=== PATIENT | male | born 1960 | race Caucasian/White ===

== ENCOUNTER → 2016-05-29 | Outpatient (CLI) | payer BC | LOC: MW.CHRC 15:45 | PROVIDERS: ATTEND Family Medicine | DX: Z00.00 Encounter for general adult medical examination without abnormal findings (principal); Z53.9 Procedure and treatment not carried out, unspecified reason ==

== ENCOUNTER 2016-06-19 10:48 | Day surgery (SDC) | payer BC ==
[~2016-06-19 10:48] MED LIST: Bupivacaine 0.25%/EPINEPHrine 1:200,000 10 ML SDV ONE; Lactated Ringers 1,000 ML IV SCH; Lidocaine 1% with EPINEPHrine 1:100,000 20 ML MDV ONE; Octyl 2-Cyanoacrylate 1 Tube ONE; ceFAZolin 2 GM in Premix Bag 1 BAG IV ONE
[2016-06-19] MEDS ORDERED: Lidocaine 2% 5 ML SDV ONE (10:54)
[2016-06-19] MEDS ORDERED: Midazolam 1 MG/ML 2 ML SDV ONE (10:54)
[2016-06-19] MEDS ORDERED: fentaNYL 100 MCG/2 ML SDV ONE (10:54)
[2016-06-19] MEDS ORDERED: Propofol 200 MG/20 ML SDV ONE ×2 (10:54→12:37)
[2016-06-19] MEDS ORDERED: fentaNYL 250 MCG/5 ML SDV ONE (10:54)
[2016-06-19] MEDS ORDERED: Neostigmine Methylsulfate 1 MG/ML 5 ML Syringe ONE (10:55)
[2016-06-19] MEDS ORDERED: Ketorolac 30 MG/ML SDV ONE (10:55)
[2016-06-19] MEDS ORDERED: Rocuronium 10 MG/ML 10 ML Syringe ONE (10:55)
[2016-06-19] MEDS ORDERED: Ondansetron 4 MG/2 ML SDV ONE (10:55)
--- NOTE | 2016-06-19 11:22 | PCM.PREANE ---
Preanesthetic Assessment - Anesthesia/Transfusion/Family Hx Anesthesia History: Prior Anesthesia Without Reaction Family History of Anesthesia Reaction: No Transfusion History: No Prior Transfusion(s) - Review of Systems General: No Symptoms Pulmonary: No Symptoms Cardiovascular: No Symptoms Gastrointestinal: No symptoms Neurological: No Symptoms Other: Reports: None - Physical Assessment NPO Status Date: 06/18/16 O2 Sat by Pulse Oximetry: 96 Respiratory Rate: 16 Vital Signs: Last Vital Signs Temp 36.3 C 06/19/16 11:02 Pulse 53 L 06/19/16 11:02 Resp 16 06/19/16 11:02 BP 106/69 06/19/16 11:02 Pulse Ox 96 06/19/16 11:02 Height: 1.73 m Weight: 88.904 kg ASA Class: 1 Mental Status: Alert & Oriented x3 Dentition: Reports: Normal Dentition ROM/Head Extension: Full Lungs: Clear to auscultation Cardiovascular: Regular Rate - Allergies Allergies/Adverse Reactions: Allergies Allergy/AdvReac Type Severity Reaction Status Date / Time No Known Allergies Allergy Verified 06/16/16 16:49 - Anesthesia Plan Pre-Op Medication Ordered: None - Acknowledgements Anesthesia Type Planned: General Anesthesia Pt an Appropriate Candidate for the Planned Anesthesia: Yes Alternatives and Risks of Anesthesia Discussed w Pt/Guardian: Yes Pt/Guardian Understands and Agrees with Anesthesia Plan: Yes PreAnesthesia Questionnaire - Past Health History Medical/Surgical History: Denies Medical/Surgical History Other HEENT History: wears reading glasses, has upper permanent dental bridge Cardiovascular History: Reports: None Respiratory History: Reports: None Gastrointestinal History: Reports: None Genitourinary History: Reports: None Musculoskeletal History: Reports: Fracture Other Musculoskeletal History: L 3 fx, healed by immobilization Neurological History: Reports: None Psychiatric History: Reports: None Endocrine/Metabolic History: Reports: None Hematologic History: Reports: None Immunologic History: Reports: None Oncologic (Cancer) History: Reports: None Dermatologic History: Reports: None - Past Surgical History Head Surgeries/Procedures: Reports: None HEENT Surgical History: Reports: None Cardiovascular Surgical History: Reports: None Respiratory Surgical History: Reports: None GI Surgical History: Reports: Hernia, inguinal Male Surgical History: Reports: None Endocrine Surgical History: Reports: None Neurological Surgical History: Reports: None Musculoskeletal Surgical History: Reports: None Oncologic Surgical History: Reports: None - SUBSTANCE USE Smoking Status *Q: Never Smoker Tobacco Use Within Last Twelve Months: No Second Hand Smoke Exposure: No Recreational Drug Use History: No - HOME MEDS Home Medications: Home Meds Multivitamin [Multivitamins] 1 tab PO DAILY 07/30/15 [History] Vitamin E 400 unit PO DAILY 06/16/16 [History] - CURRENT (IN HOUSE) MEDS Current Meds: Current Medications Lactated Ringer's (Ringers, Lactated) 1,000 mls @ 125 mls/hr IV ASDIRECTED [facility] Last Admin: 06/19/16 11:04 Dose: 125 mls/hr Discontinued Medications Bupivacaine HCl/Epinephrine Bitart (Marcaine 0.25%/Epinephrine 1:200,000) Confirm Administered Dose 20 ml .ROUTE .STK-MED ONE Stop: 06/19/16 09:47 Fentanyl (Sublimaze) Confirm Administered Dose 100 mcg .ROUTE .STK-MED ONE Stop: 06/19/16 10:55 Fentanyl (Sublimaze) Confirm Administered Dose 250 mcg .ROUTE .STK-MED ONE Stop: 06/19/16 10:55 Glycopyrrolate () Confirm Administered Dose 1 mg .ROUTE .STK-MED ONE Stop: 06/19/16 10:56 Cefazolin Sodium/Dextrose 2 gm (/ Premix) 50 mls @ 100 mls/hr IV ONETIME ONE Stop: 06/19/16 05:29 Ketorolac Tromethamine (Toradol) Confirm Administered Dose 30 mg .ROUTE .STK- MED ONE Stop: 06/19/16 10:56 Lidocaine (Xylocaine-Mpf 2%) Confirm Administered Dose 10 ml .ROUTE .STK-MED ONE Stop: 06/19/16 10:55 Lidocaine/Epinephrine (Xylocaine 1% With Epinephrine 1:100,000) Confirm Administered Dose 20 ml .ROUTE .STK-MED ONE Stop: 06/19/16 09:48 Midazolam HCl (Versed 1 Mg/Ml) Confirm Administered Dose 2 mg .ROUTE .STK-MED ONE Stop: 06/19/16 10:55 Neostigmine Methylsulfate (Neostigmine) Confirm Administered Dose 5 mg .ROUTE .STK-MED ONE Stop: 06/19/16 10:56 Octyl Cyanoacrylate (Dermabond Advance) Confirm Administered Dose 1 applic .ROUTE .STK-MED ONE Stop: 06/19/16 09:48 Ondansetron HCl (Zofran) Confirm Administered Dose 4 mg .ROUTE .STK-MED ONE Stop: 06/19/16 10:56 Propofol (Diprivan 20 Ml) Confirm Administered Dose 400 mg .ROUTE .STK-MED ONE Stop: 06/19/16 10:55 Rocuronium Browns (Zemuron) Confirm Administered Dose 100 mg .ROUTE .STK-MED ONE Stop: 06/19/16 10:56 Preanesthetic Assessment - ANESTHESIA/TRANSFUSION/FAMILY HX Anesthesia/Transfusion History: No Prior Anesthesia, No Prior Transfusion(s) Family History of Anesthesia Reaction: No Other Intubation History Comment: no history of intubation - PHYSICAL ASSESSMENT O2 Sat by Pulse Oximetry: 96 RR: 16 Vital Signs: Last Vital Signs Temp 36.3 C 06/19/16 11:02 Pulse 53 L 06/19/16 11:02 Resp 16 06/19/16 11:02 BP 106/69 06/19/16 11:02 Pulse Ox 96 06/19/16 11:02 Height: 1.73 m Weight: 88.904 kg - ALLERGIES Allergies/Adverse Reactions: Allergies Allergy/AdvReac Type Severity Reaction Status Date / Time No Known Allergies Allergy Verified 06/16/16 16:49
[2016-06-19] MEDS ORDERED: Acetaminophen/oxyCODONE 325-10 MG Tab PO PRN (11:32)
[2016-06-19] MEDS ORDERED: ePHEDrine 50 MG/ML SDV ONE (11:59)
[2016-06-19] MEDS ORDERED: Bupivacaine 0.25%/EPINEPHrine 1:200,000 10 ML SDV ONE (12:01)
[2016-06-19] MEDS ORDERED: fentaNYL 100 MCG/2 ML SDV IVPUSH PRN (12:30)
--- NOTE | 2016-06-19 13:26 | PCM.OPNOTE ---
- General Post-Op/Procedure Note Date of Surgery/Procedure: 06/19/16 Operative Procedure(s): r ing hernia rep w mesh Findings: large lipomer indirect ing hernia and mod direct ing hernia on R; repair w mesh and plug; [id number] Pre Op Diagnosis: ing hernia, right Post-Op Diagnosis: Same Anesthesia Technique: General ET tube Primary Surgeon: Luís Rubio Pathology: hernia sac sent Complications: None Condition: Good
[2016-06-19] MEDS: HYDROmorphone 2 MG/ML Syringe IVPUSH ONE ×2 (13:50→14:05)
--- NOTE | 2016-06-19 14:45 | PCM.POSTAN ---
POST ANESTHESIA ASSESSMENT - MENTAL STATUS Mental Status: alert, oriented - RESPIRATORY Respiratory Status: respiratory rate WNL, airway patent, O2 saturation stable - CARDIOVASCULAR CV Status: pulse rate WNL, blood pressure stable - GASTROINTESTINAL GI Status: no symptoms - PAIN Pain Score: 2 - POST OP HYDRATION Hydration Status: adequate & stable - OBSERVATIONS Free Text/Narrative:: Pt stable for discharge to phase II recovery. No apparent anesthesia complications.
--- NOTE | 2016-06-19 14:46 | PCM48HPAN ---
Post Anesthesia Note - EVALUATION WITHIN 48HRS OF ANESTHETIC Vital Signs in Normal Range: Yes Patient Participated in Evaluation: Yes Respiratory Function Stable: Yes Airway Patent: Yes Cardiovascular Function Stable: Yes Hydration Status Stable: Yes Pain Control Satisfactory: Yes Nausea and Vomiting Control Satisfactory: Yes Mental Status Recovered: Yes
[2016-06-19 15:05] VITALS: BP 112/68
--- NOTE | 2016-06-20 13:39 | OR ---
SURGEON: Luís Rubio MD DATE OF PROCEDURE: 06/19/2016 PREOPERATIVE DIAGNOSIS: Right inguinal hernia. POSTOPERATIVE DIAGNOSIS: Right inguinal hernia. PROCEDURE PERFORMED: Right inguinal hernia repair with direct and indirect hernia. DESCRIPTION OF PROCEDURE: The patient was taken to the operating room and placed in the supine position. Upon induction of general endotracheal anesthesia, the patient's groin and inguinal area were prepped and draped in a sterile fashion. The scrotum was placed on top of the drape in case it needed to be maneuvered. An IV antibiotic was given prophylactically and after assessment of appropriate landmark, a transverse incision was made which was right in the middle of the external oblique and the internal oblique and the transverse incision was then carefully taken down past the Frandy fascia and exposed the external oblique where the cord is. The external ring was also identified and using a 15 blade, a small krystin was made right on top of the cord and then using a Metzenbaum scissors, carefully opened up the fiber along its direction all the way to the external ring. The spermatic cord was then carefully lifted up from the inguinal canal. A Jarod drain was then used to hold on to manipulate the cord and carefully dissect out from the inguinal floor. The cremasteric muscle was then opened up. A glistening whitish hernia sac in the medial anterior aspect of the cord was located. This was carefully dissected down all the way to the internal ring, then using 2-0 Silk, the hernia sac was then tied off, transfixed and amputated. The hernia sac was then sent for pathology. Upon transfixing of the hernia sac and amputation of the hernia sac, it withdrew back to the peritoneum by itself, and a custom made plug was inserted followed with mesh. Custom fit mesh was then used to reinforce the inguinal floor. The mesh was then anchored down by using 2-0 Prolene stitches to the periosteum of the pubic symphysis, then running down to the lateral aspect of the rectus muscle. The lateral part of the mesh was then anchored to the Guzman ligament, again using 2- 0 Prolene. The last few stitches also anchored the plug to make sure the plug is not migrating. There was one stitch placed at the end of the two tails. Where the cord exits out, a stitch was placed in the two tails to repair the internal ring. Upon conclusion of surgery, I used a finger to make sure the ring is not too tight and not too loose, followed with some irrigation. The external oblique was then repaired by use of 2-0 Vicryl and the recreation external ring was also tested, not too tight, not too loose, followed with 2-0 Vicryl and closed the Frandy fascia and the skin stapled to approximate the skin, followed by appropriate dressing. The patient was then awakened, extubated and transferred to recovery room in a hemodynamically stable condition. The patient tolerated the procedure well. There were no intraoperative complications. Dr. Rubio was present through the whole procedure. Just before surgery, a timeout was called. The patient was identified and procedure identified and procedure started. As always, thank you for the kind referral. FINDING: A very large lipoma indirect inguinal hernia and moderate direct inguinal hernia. So, this is a pantaloon hernia repair with mesh. As always, thank you for the kind referral. JENY / KEE /[id number]
== END 2016-06-19 15:55 | disposition home or self-care (01) ==
LOC: MW.SDS 10:48
PROVIDERS: ATTEND Surgery
PROC: 0YQ50ZZ Repair Right Inguinal Region, Open Approach (ICD-10-PCS; principal; 2016-06-19)
DX: K40.90 Unilateral inguinal hernia, without obstruction or gangrene, not specified as recurrent (principal); N52.9 Male erectile dysfunction, unspecified; Z79.899 Other long term (current) drug therapy; Z98.890 Other specified postprocedural states
CPT/HCPCS: 49505; J1170; J1885; J2250; J2405; J3010; J7120; 00830; 88302; A9270-GY; C1781; J2704